=== PATIENT | male | born 1960 | race Hispanic/Latino ===

== ENCOUNTER 2017-01-13 17:16 | Emergency (ER) | payer MEDICARE, MEDICAID ==
[2017-01-13 17:48] VITALS: BMI 30.4
[2017-01-13 17:54] VITALS: TEMP 98.3
--- NOTE | 2017-01-13 18:29 | ED PDOC ---
Arrival/HPI - General Historian: Patient - History of Present Illness Time/Duration: Other (2 weeks) Quality: Aching Context: Home - General Chief Complaint: Trauma Time Seen by Provider: 01/13/17 18:04 - History of Present Illness Narrative History of Present Illness (Text): 01/13/17 18:23 This 56 yo male with pmh epilepsy, speech disorder, presents to this ED c/o left shoulder pain x 2 weeks. Patient stated while walking on the street, he tripped and fell down on his left shoulder. Patient admits chronic b/l shoulder pain for several years. Denies head injury, loc, n/v, weakness, paresthesias, or abnormal gait. (Leah Rush) Past Medical History - Provider Review Nursing Documentation Reviewed: Yes - Infectious Disease Hx of Infectious Diseases: None - Tetanus Immunization Tetanus Immunization: Unknown - Cardiac Hx Pacemaker: No - Pulmonary Hx Respiratory Disorders: No - Neurological Hx Seizures: Yes - HEENT Hx HEENT Disorder: Yes Other/Comment: HARD OF HEARING - Renal Hx Renal Disorder: No - Endocrine/Metabolic Hx Endocrine Disorders: Yes Hx Hypothyroidism: Yes - Hematological/Oncological Hx Blood Transfusions: No Hx Blood Transfusion Reaction: No - Integumentary Hx Dermatological Disorder: No - Musculoskeletal/Rheumatological Hx Musculoskeletal Disorders: Yes - Gastrointestinal Hx Gastrointestinal Disorders: No - Genitourinary/Gynecological Hx Genitourinary Disorders: Yes Hx Prostate Problems: Yes - Psychiatric Hx Emotional Abuse: No Hx Physical Abuse: No Hx Substance Use: No - Past Surgical History Past Surgical History: Non-Contributing - Surgical History Other/Comment: CRANIOTOMY, LEFT TIB/FIB BREAK - Anesthesia Hx Anesthesia Reactions: No Hx Malignant Hyperthermia: No - Suicidal Assessment Feels Threatened In Home Enviroment: No Family/Social History - Physician Review Nursing Documentation Reviewed: Yes Family/Social History: No Known Family HX Smoking Status: Former Smoker Hx Alcohol Use: No Hx Substance Use: No Hx Substance Use Treatment: No Allergies/Home Meds Allergies/Adverse Reactions: Allergies No Known Allergies Allergy (Verified 01/13/17 17:48) Home Medications: Home Meds Medication Instructions Recorded Confirmed Divalproex [Depakote ER] 500 mg PO DAILY 03/16/15 01/13/17 Atorvastatin [Lipitor] 10 mg PO DIN 08/06/16 01/13/17 Sertraline HCl 50 mg PO DAILY 08/06/16 01/13/17 Cyclobenzaprine [Cyclobenzaprine 10 mg PO BID 08/08/16 01/13/17 HCl] Ibuprofen [Motrin] 400 mg PO BID 08/08/16 01/13/17 Levothyroxine [Synthroid] 25 mcg PO DAILY 08/08/16 01/13/17 Review of Systems - Review of Systems Constitutional: Normal. absent: Fatigue, Weight Change, Fevers Eyes: Normal ENT: Normal. absent: Sore Throat Respiratory: Normal. absent: SOB, Cough Cardiovascular: Normal. absent: Chest Pain, Palpitations, Edema, Calf Pain, MARCUS , Orthopnea Gastrointestinal: Normal. absent: Abdominal Pain, Nausea, Vomiting Genitourinary Male: Normal. absent: Dysuria, Frequency, Hematuria Musculoskeletal: Other (left shoulder pain) Skin: Normal Neurological: Normal, Other (He admits [facility] speech disorder). absent: Headache, Dizziness, Focal Weakness, Gait Changes, Speech Changes, Facial Droop, Disequilibrium, Seizure Endocrine: Normal Hemo/Lymphatic: Normal Psychiatric: Normal Physical Exam Temperature: Afebrile Blood Pressure: Normal Pulse: Regular Respiratory Rate: Normal Appearance: Positive for: Well-Appearing, Non-Toxic, Comfortable Pain Distress: None Mental Status: Positive for: Alert and Oriented X 3 - Systems Exam Head: Present: Atraumatic, Normocephalic, Other (No raccoon sign. No mortensen sign) Pupils: Present: PERRL, Other (no hyphema) Extroacular Muscles: Present: EOMI. No: Entrapment Conjunctiva: Present: Normal Ears: Present: Normal, NORMAL TM, Normal Canal. No: Erythema, TM Bulging, Fluid , TM Perf Mouth: Present: Moist Mucous Membranes, Normal Lips, Normal Tounge, Normal Teeth Pharnyx: Present: Normal. No: ERYTHEMA, EXUDATE, TONSILS ENLARGED Nose (External): Present: Atraumatic Nose (Internal): Present: Normal Inspection Neck: Present: Normal Range of Motion, Trachea Midline. No: Meningeal Signs, MIDLINE TENDERNESS, Paraspinal Tenderness Respiratory/Chest: Present: Clear to Auscultation, Good Air Exchange. No: Respiratory Distress, Accessory Muscle Use, Wheezes, Retracting, Rhonchi, Tender to Palpation Cardiovascular: Present: Regular Rate and Rhythm, Normal S1, S2. No: Murmurs Abdomen: Present: Normal Bowel Sounds. No: Tenderness, Distention, Peritoneal Signs Back: Present: Normal Inspection. No: CVA Tenderness, Decubitus Ulcer Upper Extremity: Present: Normal Inspection, Normal ROM, NORMAL PULSES, Neurovascularly Intact, Capillary Refill < 2s. No: Cyanosis, Edema, Tenderness , Swelling, Erythema, Deformity Lower Extremity: Present: Normal Inspection, NORMAL PULSES, Normal ROM, Neurovascularly Intact, Capillary Refill < 2 s. No: Edema Neurological: Present: GCS=15, CN II-XII Intact, Speech Normal, Motor Func Grossly Intact, Normal Sensory Function, Normal Cerebellar Funct, Norm Deep Tendon Reflexes, Gait Normal Skin: Present: Warm, Dry, Normal Color. No: Rashes Psychiatric: Present: Alert, Oriented x 3, Normal Insight, Normal Concentration Vital Signs Temp Pulse Resp BP Pulse Ox 01/13/17 17:52 98.3 F 69 15 128/94 H 98 Medical Decision Making Re-evaluation Time: 19:09 Reassessment Condition: Re-examined, Improved ED Course and Treatment: I was available for consultation during PA evaluation. The chart reviewed by me , and I agree with disposition. The documented history was done by the physician structural test engineer. The documented physical exam was done by the physician structural test engineer. The documented procedures were done by the physician structural test engineer. (Altaf Faria) 01/13/17 19:09 Patient is resting comfortably, and is in no acute distress. Patient was instructed to follow up with *physician/clinic* in 1-2 days for further evaluation. (Leah Rush) - RAD Interpretation Narrative RAD Interpretations (Text): 01/13/17 19:09 shoulder x-rays: No fx or dislocation (Leah Rush) Radiology Orders: 01/13/17 18:20 SHOULDER LEFT [RAD] Stat - Medication Orders Current Medication Orders: Naproxen (Anaprox Ds) 550 mg PO STAT STA Stop: 01/13/17 19:09 Disposition/Present on Arrival - Present on Arrival Any Indicators Present on Arrival: No History of DVT/PE: No History of Uncontrolled Diabetes: No Urinary Catheter: No History of Decub. Ulcer: No History Surgical Site Infection Following: None - Disposition Have Diagnosis and Disposition been Completed?: Yes Disposition Time: 19:10 - Disposition Diagnosis: Shoulder pain Disposition: HOME/ ROUTINE Condition: GOOD Discharge Instructions (ExitCare): Shoulder Pain (ED) Additional Instructions: Call private doctor for follow up visit in 1-2 days. Take medication as instructed. Return to emergency if symptoms worsen. Prescriptions: Famotidine [Pepcid] 40 mg PO DAILY #10 tablet Naproxen 500 mg PO BID PRN #20 tab PRN Reason: Pain, Severe (8-10) Referrals: Zhen Bailey MD [Primary Care Provider] - Follow up with primary
[2017-01-13] MEDS ORDERED: Naproxen 550 mg Tab PO STA (19:08)
[2017-01-13 19:20] VITALS: BP 129/90; PULSE 68; RESP 16; O2SAT 99
--- NOTE | 2017-01-14 09:32 | RAD ---
PROCEDURE: Radiographs of the Left Shoulder HISTORY: pain s/p fall COMPARISON: No prior. FINDINGS: BONES: Normal. No fracture. JOINTS: Normal. Glenohumeral and acromioclavicular joints preserved. No osteoarthritis. SOFT TISSUES: Normal. OTHER FINDINGS: None. IMPRESSION: Normal radiographs of the left shoulder.
== END 2017-01-13 19:27 | disposition home or self-care (01) ==
LOC: ED 17:16
DX: M25.512 Pain in left shoulder (principal)

== ENCOUNTER 2017-11-17 20:32 | Emergency (ER) | payer MEDICARE, MEDICAID ==
[2017-11-17 20:33] VITALS: BMI 30.4
[2017-11-17 21:12] VITALS: TEMP 98.2
[2017-11-17 22:20] LABS: BASO # 0.02 K/mm3 (0.0-2.0); BASO % 0.3 % (0.0-3.0); EOS # 0.2 (0.0-0.7); EOS % 2.2 % (1.5-5.0); GRAN # 3.9 (1.4-6.5); GRAN % 53.7 % (50.0-68.0); HEMOGLOBIN 14.2 g/dL (14.0-18.0); LYMPH # 2.7 (1.2-3.4); LYMPH % 37.1 % (22.0-35.0); MEAN CELL VOLUME 96.3 fl (80.0-105.0); MEAN CORPUSCULAR HEMOGLOBIN 33.2 pg (25.0-35.0); MEAN CORPUSCULAR HGB CONC 34.5 g/dl (31.0-37.0); MEAN PLATELET VOLUME 9.8 fl (7.0-11.0); MONO # 0.5 (0.1-0.6); MONO % 6.7 % (1.0-6.0); RBC 4.28 10^6/uL (3.5-6.1); WHITE BLOOD COUNT 7.3 10^3/ul (4.5-11.0)
[2017-11-17 22:29] LABS: ALB/GLOB RATIO 1.5 (1.1-1.8); ALBUMIN 4.6 g/dL (3.0-4.8); CALCIUM 9.7 mg/dL (8.4-10.5)
[2017-11-17] MEDS ORDERED: Divalproex 500 mg ER (ONCE DAILY formulation) PO STA (23:12)
--- NOTE | 2017-11-17 23:12 | ED PDOC ---
Arrival/HPI - General Chief Complaint: Medical Clearance Time Seen by Provider: 11/17/17 21:06 Historian: Patient - History of Present Illness Narrative History of Present Illness (Text): 11/17/17 21:30 Shawn Henderson is a 57 year old male, whose past medical history includes seizure disorder, who presents to the Emergency department status post possible seizure episode tonight, but patient is unsure. Patient states he missed 2 doses of Depakote. Patient denies any fever, chills, chest pain, shortness of breath, nausea, vomiting, diarrhea, urinary symptoms, back pain, neck pain, headache, dizziness, trauma/injury, or any other complaints. Time/Duration: Prior to Arrival Symptom Onset: Gradual Symptom Course: Unchanged Activities at Onset: Light Context: Home Past Medical History - Provider Review Nursing Documentation Reviewed: Yes - Infectious Disease Hx of Infectious Diseases: None - Tetanus Immunization Tetanus Immunization: Unknown - Cardiac Hx Pacemaker: No - Pulmonary Hx Respiratory Disorders: No - Neurological Hx Seizures: Yes - HEENT Hx HEENT Disorder: Yes Other/Comment: HARD OF HEARING - Renal Hx Renal Disorder: No - Endocrine/Metabolic Hx Endocrine Disorders: Yes Hx Hypothyroidism: Yes - Hematological/Oncological Hx Blood Transfusions: No Hx Blood Transfusion Reaction: No - Integumentary Hx Dermatological Disorder: No - Musculoskeletal/Rheumatological Hx Musculoskeletal Disorders: Yes - Gastrointestinal Hx Gastrointestinal Disorders: No - Genitourinary/Gynecological Hx Genitourinary Disorders: Yes Hx Prostate Problems: Yes - Psychiatric Hx Emotional Abuse: No Hx Physical Abuse: No Hx Substance Use: No - Past Surgical History Past Surgical History: Non-Contributing - Surgical History Other/Comment: CRANIOTOMY, LEFT TIB/FIB BREAK - Anesthesia Hx Anesthesia Reactions: No Hx Malignant Hyperthermia: No - Suicidal Assessment Feels Threatened In Home Enviroment: No Family/Social History - Physician Review Nursing Documentation Reviewed: Yes Family/Social History: Unknown Family HX Smoking Status: Former Smoker Hx Alcohol Use: No Hx Substance Use: No Hx Substance Use Treatment: No Allergies/Home Meds Allergies/Adverse Reactions: Allergies No Known Allergies Allergy (Verified 01/13/17 17:48) Home Medications: Home Meds Medication Instructions Recorded Confirmed Divalproex [Depakote ER] 500 mg PO DAILY 03/16/15 01/13/17 Atorvastatin [Lipitor] 10 mg PO DIN 08/06/16 01/13/17 Sertraline HCl 50 mg PO DAILY 08/06/16 01/13/17 Cyclobenzaprine [Cyclobenzaprine 10 mg PO BID 08/08/16 01/13/17 HCl] Ibuprofen [Motrin] 400 mg PO BID 08/08/16 01/13/17 Levothyroxine [Synthroid] 25 mcg PO DAILY 08/08/16 01/13/17 Review of Systems - Physician Review All systems were reviewed & negative as marked: Yes - Review of Systems Constitutional: Normal. absent: Fevers Eyes: Normal ENT: Normal Respiratory: Normal. absent: SOB, Cough Cardiovascular: Normal. absent: Chest Pain Gastrointestinal: Normal. absent: Abdominal Pain, Diarrhea, Nausea, Vomiting Genitourinary Male: Normal. absent: Dysuria, Frequency, Hematuria, Urinary Output Changes Musculoskeletal: Normal. absent: Back Pain, Neck Pain Skin: Normal. absent: Rash Neurological: Seizure. absent: Headache, Dizziness Endocrine: Normal Hemo/Lymphatic: Normal Psychiatric: Normal Physical Exam Vital Signs Reviewed: Yes Vital Signs Temp Pulse Resp BP Pulse Ox 11/17/17 22:00 98.2 F 81 16 133/70 100 11/17/17 21:06 98.2 F 97 H 18 118/80 98 Temperature: Afebrile Blood Pressure: Normal Pulse: Regular Respiratory Rate: Normal Appearance: Positive for: Well-Appearing, Non-Toxic, Comfortable Pain Distress: None Mental Status: Positive for: Alert and Oriented X 3 - Systems Exam Head: Present: Atraumatic, Normocephalic Pupils: Present: PERRL Extroacular Muscles: Present: EOMI Conjunctiva: Present: Normal Ears: Present: Normal, NORMAL TM, Normal Canal. No: Erythema, TM Bulging, Fluid Mouth: Present: Moist Mucous Membranes Pharnyx: Present: Normal. No: ERYTHEMA, EXUDATE, TONSILS ENLARGED, Peritonsilar Swelling, Uvular Deviation, Muffled/Hoarse Voice, Strider, Soft Palate/Uvular Edema Nose (External): Present: Atraumatic Nose (Internal): Present: Normal Inspection Neck: Present: Normal Range of Motion Respiratory/Chest: Present: Clear to Auscultation, Good Air Exchange. No: Respiratory Distress, Accessory Muscle Use Cardiovascular: Present: Regular Rate and Rhythm, Normal S1, S2. No: Murmurs Abdomen: No: Tenderness, Distention, Peritoneal Signs Back: Present: Normal Inspection Upper Extremity: Present: Normal Inspection. No: Cyanosis, Edema Lower Extremity: Present: Normal Inspection. No: Edema Neurological: Present: GCS=15, CN II-XII Intact, Speech Normal Skin: Present: Warm, Dry, Normal Color. No: Rashes Psychiatric: Present: Alert, Oriented x 3, Normal Insight, Normal Concentration Medical Decision Making ED Course and Treatment: 11/17/17 21:30 Impression: 57 year old male complaining of possible seizure, non-compliant with medication. Differential Diagnosis included but are not limited to: seizure disorder Plan: -- Labs, valproic acid level -- Reassess and disposition Progress Notes: 11/17/17 23:15 On re-evaluation, patient feels better and is in no acute distress. I have discussed the results and plan with the patient, who expresses understanding. Patient in agreement with plan to be discharged home. Patient is stable for discharge. Patient was instructed to follow up with physician or return if symptoms worsen or new concerning symptoms arise. - Lab Interpretations Lab Results: 11/17/17 22:10 11/17/17 22:10 Lab Results 11/17/17 22:10: Valproic Acid < 10 L 11/17/17 22:10: WBC 7.3, RBC 4.28, Hgb 14.2, Hct 41.2 L, MCV 96.3, MCH 33.2, MCHC 34.5, RDW 14.0, Plt Count 331, MPV 9.8, Gran % 53.7, Lymph % (Auto) 37.1 H , [place] % (Auto) 6.7 H, Eos % (Auto) 2.2, Baso % (Auto) 0.3, Gran # 3.90, Lymph # (Auto) 2.7, [place] # (Auto) 0.5, Eos # (Auto) 0.2, Baso # (Auto) 0.02 11/17/17 22:10: Sodium 141, Potassium 3.8, Chloride 105, Carbon Dioxide 22, Anion Gap 17, BUN 38 H, Creatinine 1.9 H, Est GFR ( Amer) 44, Est GFR ( Non-Af Amer) 36, Random Glucose 81, Calcium 9.7, Total Bilirubin 0.4, AST 91 H, ALT 62 H, Alkaline Phosphatase 62, Total Protein 7.8, Albumin 4.6, Globulin 3.1 , Albumin/Globulin Ratio 1.5 I have reviewed the lab results: Yes - Medication Orders Current Medication Orders: Discontinued Medications Divalproex Sodium (Depakote Er(Once Daily)) 500 mg PO STAT STA PRN Reason: Protocol Stop: 11/17/17 23:13 Last Admin: 11/17/17 23:39 Dose: 500 mg - Scribe Statement The provider has reviewed the documentation as recorded by the Jaydenibbeatriz Encarnacion All medical record entries made by the Jaydenibbeatriz were at my direction and personally dictated by me. I have reviewed the chart and agree that the record accurately reflects my personal performance of the history, physical exam, medical decision making, and the department course for this patient. I have also personally directed, reviewed, and agree with the discharge instructions and disposition. Disposition/Present on Arrival - Present on Arrival Any Indicators Present on Arrival: No History of DVT/PE: No History of Uncontrolled Diabetes: No Urinary Catheter: No History of Decub. Ulcer: No History Surgical Site Infection Following: None - Disposition Have Diagnosis and Disposition been Completed?: Yes Diagnosis: Seizure disorder Disposition: HOME/ ROUTINE Disposition Time: 23:15 Condition: GOOD Discharge Instructions (ExitCare): Epilepsy in Adults Additional Instructions: take your medicine as directed Referrals: Zhen Bailey MD [Primary Care Provider] - Follow up with primary Forms: MailWriter (Yoruba)
[2017-11-17 23:48] VITALS: BP 133/70; PULSE 81; RESP 16; O2SAT 100
== END 2017-11-17 23:50 | disposition home or self-care (01) ==
LOC: ED 20:32
DX: G40.909 Epilepsy, unspecified, not intractable, without status epilepticus (principal); E03.9 Hypothyroidism, unspecified; Z87.891 Personal history of nicotine dependence

== ENCOUNTER 2017-11-27 16:25 | Emergency (ER) | payer MEDICARE, MEDICAID ==
[2017-11-27 16:43] VITALS: BMI 29.2
[2017-11-27 16:49] VITALS: TEMP 98.5
[2017-11-27] MEDS ORDERED: Oxycodone/Acetaminophen 5/325 mg Tab PO STA (16:57)
[2017-11-27] MEDS ORDERED: TDAP Vaccine 0.5 mL Syr IM ONE (16:57)
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
--- NOTE | 2017-11-27 17:54 | CT ---
PROCEDURE: CT HEAD WITHOUT CONTRAST. HISTORY: fall COMPARISON: 03/16/2015 TECHNIQUE: Axial computed tomography images were obtained through the head/brain without intravenous contrast. Radiation dose: Total exam DLP = mGy-cm. This CT exam was performed using one or more of the following dose reduction techniques: Automated exposure control, adjustment of the mA and/or kV according to patient size, and/or use of iterative reconstruction technique. FINDINGS: HEMORRHAGE: No intracranial hemorrhage. BRAIN: No mass effect or edema. Stable left cerebral hemisphere encephalomalacia likely due to old ischemia. VENTRICLES: Unremarkable. No hydrocephalus. CALVARIUM: Unremarkable. PARANASAL SINUSES: Unremarkable as visualized. No significant inflammatory changes. MASTOID AIR CELLS: Unremarkable as visualized. No inflammatory changes. OTHER FINDINGS: None. IMPRESSION: Stable left cerebral hemisphere encephalomalacia likely due to old ischemia. No acute hemorrhage.
--- NOTE | 2017-11-27 18:12 | CT ---
PROCEDURE: CT scan maxillofacial skeleton dated 11/27/2017 HISTORY: Status post fall with abrasion COMPARISON: Comparison made with concurrent CT scan brain 11/27/2017. TECHNIQUE: Contiguous axial CT images of the maxillofacial bones were obtained. Coronal and sagittal reformats were generated. Radiation dose: Total exam DLP = 836.12 mGy-cm. This CT exam was performed using one or more of the following dose reduction techniques: Automated exposure control, adjustment of the mA and/or kV according to patient size, and/or use of iterative reconstruction technique. FINDINGS: NASAL BONES: Nasal bones appear intact bilaterally. ORBITS: Orbits and contents appear grossly unremarkable. Globes intact and lenses appropriately located. There are no retrobulbar hemorrhages or collections. PARANASAL SINUSES/ MASTOIDS: The visualized paranasal sinuses are well-developed and currently well-aerated. There are no fluid levels seen to suggest acute hemorrhage or sinusitis. Tiny focus of polypoid like mucosal thickening right maxillary antrum. The remaining paranasal sinuses well-developed and currently well-aerated. MAXILLA: Anterior nasal spine of the maxilla appears intact. The remaining visualized maxilla also unremarkable. MANDIBLE/ TEMPOROMANDIBULAR JOINTS: Unremarkable. SKULL BASE: Unremarkable. TEMPORAL BONES: Middle ears and mastoid grossly unremarkable. OTHER FINDINGS: Note made of a small approximately 3.2 mm elliptical shaped radiopaque density just below the skin surface within the subcutaneous tissues right overlying the right zygomatic arch. This could represent small focus of glass or gravel. Clinical correlation with physical exam. IMPRESSION: There are no acute fracture seen. There is a small elliptical shaped radiopaque density just below the skin surface within the subcutaneous tissues overlying the right zygomatic arch. Clinical correlation with physical exam.
[2017-11-27 19:27] VITALS: RESP 16; O2SAT 98
[2017-11-27 20:08] VITALS: BP 140/80; PULSE 86
--- NOTE | 2017-11-28 08:57 | RAD ---
PROCEDURE: Right Knee Radiographs. HISTORY: fall and abrasion COMPARISON: None. FINDINGS: BONES: No acute fracture or destructive bony lesion identified. JOINTS: No subluxation or dislocation. Joint space narrowing seen in all 3 compartments compatible degenerative joint disease. JOINT EFFUSION: None. OTHER FINDINGS: None. IMPRESSION: No acute fracture or dislocation. Mild degenerative joint disease is seen all 3 compartments.
--- NOTE | 2017-11-28 08:59 | RAD ---
PROCEDURE: Right Hand Radiographs. HISTORY: fall and abrasion COMPARISON: None. FINDINGS: BONES: No acute fracture or destructive bony lesion identified. JOINTS: Joint space narrowing and cortical sclerosis are identified at the interphalangeal joint of the thumb as well as the 1st metatarsophalangeal joint and the basal joint. SOFT TISSUES: Normal. OTHER FINDINGS: None. IMPRESSION: No acute fracture dislocation. Degenerative changes are relatively prominent at the interphalangeal of the thumb, the basal joint and 1st metacarpophalangeal joint.
--- NOTE | 2017-11-28 09:02 | RAD ---
PROCEDURE: Radiographs of the right elbow. HISTORY: fall and abrasion COMPARISON: No prior. FINDINGS: BONES: No acute fracture or destructive bony lesion identified. JOINTS: No subluxation or dislocation. Limited degenerative joint space narrowing seen. SOFT TISSUES: Normal. JOINT EFFUSION: None. OTHER FINDINGS: None. IMPRESSION: No acute fracture or dislocation. Limited degenerative changes noted.
== END 2017-11-27 20:07 | disposition home or self-care (01) ==
LOC: ED 16:25
DX: S00.81XA Abrasion of other part of head, initial encounter (principal); S50.311A Abrasion of right elbow, initial encounter; S60.416A Abrasion of right little finger, initial encounter; S80.211A Abrasion, right knee, initial encounter; V18.4XXA Pedal cycle driver injured in noncollision transport accident in traffic accident, initial encounter; Y92.89 Other specified places as the place of occurrence of the external cause; Z87.821 Personal history of retained foreign body fully removed; Z23 Encounter for immunization

== ENCOUNTER 2018-05-21 21:31 | Emergency (ER) | payer MEDICARE, MEDICAID ==
[2018-05-21 22:05] VITALS: BMI 26.6
[2018-05-21 22:40] VITALS: BP 146/73; PULSE 65; RESP 18; TEMP 98.1; O2SAT 98
--- NOTE | 2018-05-21 23:09 | ED PDOC ---
Addendum entered and electronically signed by Micah Garica PA-C 05/23/18 13:24: Addendum Addendum: 05/23/18 13:24 Initial xray impression is wet read and pending official read. Addendum entered and electronically signed by Micah Garcia PA-C 05/23/18 11:51: Addendum Addendum: 05/23/18 11:47 Pt. left the ER before the official report. Physical exam that he has no rt. lateral or 5th metatarsal tenderness or swelling. Original Note: Arrival/HPI <Td Barron - Last Filed: 05/21/18 23:58> - General Historian: Patient - History of Present Illness Narrative History of Present Illness (Text): 05/21/18 23:06 58 year old male, pmh including hypothyroidism/seizure, nkda, complaining of rt. foot sole pain x 1 year with no fall or trauma. Aching pain, aggravated by walking, on and off pain, no calf or thigh pain, no numbness or tingling, no palpitation, no rash, no night sweat, no dizziness, no other medical or psychological complaints. <Micah Garcia - Last Filed: 05/22/18 01:01> - General Chief Complaint: Lower Extremity Problem/Injury Time Seen by Provider: 05/21/18 23:05 Past Medical History - Provider Review Nursing Documentation Reviewed: Yes - Infectious Disease Hx of Infectious Diseases: None - Tetanus Immunization Tetanus Immunization: Unknown - Cardiac Hx Pacemaker: No - Pulmonary Hx Respiratory Disorders: No - Neurological HX Cerebrovascular Accident: Yes Hx Seizures: Yes - HEENT Hx HEENT Disorder: Yes Other/Comment: HARD OF HEARING - Renal Hx Renal Disorder: No - Endocrine/Metabolic Hx Endocrine Disorders: Yes Hx Hypothyroidism: Yes - Hematological/Oncological Hx Blood Transfusions: No Hx Blood Transfusion Reaction: No - Integumentary Hx Dermatological Disorder: No - Musculoskeletal/Rheumatological Hx Musculoskeletal Disorders: Yes - Gastrointestinal Hx Gastrointestinal Disorders: No - Genitourinary/Gynecological Hx Genitourinary Disorders: Yes Hx Prostate Problems: Yes - Psychiatric Hx Emotional Abuse: No Hx Physical Abuse: No Hx Substance Use: No - Past Surgical History Past Surgical History: Non-Contributing - Surgical History Other/Comment: CRANIOTOMY, LEFT TIB/FIB BREAK - Anesthesia Hx Anesthesia Reactions: No Hx Malignant Hyperthermia: No - Suicidal Assessment Feels Threatened In Home Enviroment: No <Micah Garcia - Last Filed: 05/22/18 01:01> Family/Social History - Physician Review Nursing Documentation Reviewed: Yes Family/Social History: Unknown Family HX Smoking Status: Former Smoker Hx Alcohol Use: No Hx Substance Use: No Hx Substance Use Treatment: No <Micah Garcia - Last Filed: 05/22/18 01:01> Allergies/Home Meds <Td Barron - Last Filed: 05/21/18 23:58> <Micah Garcia - Last Filed: 05/22/18 01:01> Allergies/Adverse Reactions: Allergies No Known Allergies Allergy (Verified 01/13/17 17:48) Home Medications: Home Meds Medication Instructions Recorded Confirmed Divalproex [Depakote ER] 500 mg PO DAILY 03/16/15 11/27/17 Atorvastatin [Lipitor] 10 mg PO DIN 08/06/16 11/27/17 Sertraline HCl 50 mg PO DAILY 08/06/16 11/27/17 Cyclobenzaprine [Cyclobenzaprine 10 mg PO BID 08/08/16 11/27/17 HCl] Ibuprofen [Motrin] 400 mg PO BID 08/08/16 11/27/17 Levothyroxine [Synthroid] 25 mcg PO DAILY 08/08/16 11/27/17 Review of Systems - Review of Systems Constitutional: absent: Fatigue, Fevers Eyes: absent: Vision Changes ENT: absent: Hearing Changes Respiratory: absent: SOB, Cough Cardiovascular: absent: Chest Pain Gastrointestinal: absent: Abdominal Pain, Diarrhea, Nausea, Vomiting Musculoskeletal: Arthralgias. absent: Back Pain, Neck Pain, Joint Swelling, Myalgias Skin: absent: Rash, Pruritis Neurological: absent: Headache, Dizziness Psychiatric: absent: Anxiety, Depression, Suicidal Ideation <Micah Garcia - Last Filed: 05/22/18 01:01> Physical Exam Vital Signs Temp Pulse Resp BP Pulse Ox 05/21/18 22:39 98.1 F 65 18 146/73 98 05/21/18 22:05 98.8 F 93 H 20 131/90 97 <Td Barron - Last Filed: 05/21/18 23:58> Vital Signs Reviewed: Yes Vital Signs Temp Pulse Resp BP Pulse Ox 05/21/18 22:39 98.1 F 65 18 146/73 98 05/21/18 22:05 98.8 F 93 H 20 131/90 97 Temperature: Afebrile Blood Pressure: Normal Pulse: Regular Respiratory Rate: Normal Appearance: Positive for: Well-Appearing, Non-Toxic, Comfortable Pain Distress: Mild Mental Status: Positive for: Alert and Oriented X 3 - Systems Exam Head: Present: Atraumatic, Normocephalic Pupils: Present: PERRL Extroacular Muscles: Present: EOMI Conjunctiva: Present: Normal Mouth: Present: Moist Mucous Membranes Neck: Present: Normal Range of Motion Respiratory/Chest: Present: Clear to Auscultation, Good Air Exchange. No: Respiratory Distress, Accessory Muscle Use Cardiovascular: Present: Regular Rate and Rhythm, Normal S1, S2. No: Murmurs Abdomen: No: Tenderness, Distention, Peritoneal Signs Back: Present: Normal Inspection Upper Extremity: Present: Normal Inspection. No: Cyanosis, Edema Lower Extremity: Present: Normal Inspection, Other (Rt. LE: +ttp on the sole of the foot with skin intact, no laceration or abrasion, negative domonique and waller signs, FROM without limitation, sensation intact, motor 5/5, +DPPT pulses, capillary refill< 2 seconds, neurovascular intact. ). No: Edema Neurological: Present: GCS=15, CN II-XII Intact, Speech Normal Skin: Present: Warm, Dry, Normal Color. No: Rashes Psychiatric: Present: Alert, Oriented x 3, Normal Insight, Normal Concentration <Micah Garcia - Last Filed: 05/22/18 01:01> Medical Decision Making - RAD Interpretation Radiology Orders: 05/21/18 23:05 FOOT RIGHT 3 VIEWS ROUTINE [RAD] Stat - Medication Orders Current Medication Orders: Discontinued Medications Ibuprofen (Motrin Tab) 600 mg PO STAT STA Stop: 05/21/18 23:06 Last Admin: 05/21/18 23:19 Dose: Not Given Non-Admin Reason: Patient Refused <Td Barron - Last Filed: 05/21/18 23:58> ED Course and Treatment: 05/21/18 23:08 -Rt. foot xray -Motrin -Observe and reassess 05/22/18 00:59 -Rt. foot xray: +calcaneal spur, no fracture or dislocation -I went to the bedside, pt. is gone from the ER, eloped, didn't stay for complete medical care. - RAD Interpretation Radiology Orders: 05/21/18 23:05 FOOT RIGHT 3 VIEWS ROUTINE [RAD] Stat - Medication Orders Current Medication Orders: Ibuprofen (Motrin Tab) 600 mg PO STAT STA Stop: 05/21/18 23:06 <Micah Garcia - Last Filed: 05/22/18 01:01> - PA / PRIMARY THERAPIST / Resident Statement GABO has reviewed & agrees with the documentation as recorded. <Td Barron - Last Filed: 05/21/18 23:58> - PA / PRIMARY THERAPIST / Resident Statement GABO has reviewed & agrees with the documentation as recorded. <Micah Garcia - Last Filed: 05/22/18 01:01> Disposition/Present on Arrival <Td Barron - Last Filed: 05/21/18 23:58> - Present on Arrival Any Indicators Present on Arrival: No History of DVT/PE: No History of Uncontrolled Diabetes: No Urinary Catheter: No History of Decub. Ulcer: No History Surgical Site Infection Following: None - Disposition Have Diagnosis and Disposition been Completed?: Yes Disposition Time: 00:37 <Micah Garcia - Last Filed: 05/22/18 01:01> - Disposition Diagnosis: Foot pain, Noncompliance Disposition: ELOPEMENT - ER ONLY Condition: STABLE Forms: [facility] ([place])
--- NOTE | 2018-05-22 08:53 | RAD ---
Date of service: 05/21/2018 PROCEDURE: Right Foot Radiographs. HISTORY: rt. foot sole pain x 1 year COMPARISON: None. FINDINGS: BONES: No definite acute fracture identified. Old healed fracture of the proximal diaphysis of the right 5th metatarsal bone is identified. No destructive bony lesion identified. JOINTS: [id number] hallux valgus deformity. SOFT TISSUES: Normal. OTHER FINDINGS: None. IMPRESSION: 1. Old healed fracture right 5th metatarsal bone. 2. [id number] hallux valgus deformity.
== END 2018-05-22 01:39 | disposition left against medical advice (07) ==
LOC: ED 21:31
DX: M79.671 Pain in right foot (principal); Z91.19 Patient's noncompliance with other medical treatment and regimen